=== PATIENT | male | born 1955 | race Caucasian/White ===

== ENCOUNTER 2022-02-18 08:24 | Day surgery (SDC) | payer BC ==
[~2022-02-18 08:24] MED LIST: CYCLOPENTOLATE 1% OPHTH DROPS 2 ML ONE; KETOROLAC 0.45% OPHTH DROPS ONE; PHENYLEPHRINE 2.5% OPHTH 2 ML DROPS ONE; PROPARACAINE 0.5% OPHTH DROPS 15 ML ONE
[2022-02-18] MEDS ORDERED: LACTATED RINGERS 1,000 ML IV ONE (08:41)
[2022-02-18] MEDS ORDERED: MIDAZOLAM 2 MG/2 ML VIAL ONE (10:14)
--- NOTE | 2022-02-18 10:15 | ANESTHESIA ---
Pre-Anesthesia VS, & Labs - Diagnosis R senile combined cataract - Procedure R extraction cataract w/IOL Vital Signs: Temp Pulse Resp BP Pulse Ox O2 Flow Rate 36.8 C 87 13 138/95 H 98 02/18/22 08:42 02/18/22 08:42 02/18/22 08:42 02/18/22 08:42 02/18/22 08:42 Height: 5 ft 10 in Weight (kg): 81 kg Body Mass Index: 25.6 BMI Classification: Overweight - NPO >8 hours Home Medications and Allergies Home Medications: Ambulatory Orders Atorvastatin [Lipitor] 1 tab ORAL DAILY 02/17/22 Multivitamin 1 each PO DAILY 02/17/22 Vitamin E 268 mg PO DAILY 02/17/22 hydroCHLOROthiazide [Hydrodiuril] 25 mg PO DAILY 02/17/22 Atorvastatin [Lipitor] 1 tab ORAL DAILY 02/17/22 Multivitamin 1 each PO DAILY 02/17/22 Vitamin E 268 mg PO DAILY 02/17/22 hydroCHLOROthiazide [Hydrodiuril] 25 mg PO DAILY 02/17/22 Allergies/Adverse Reactions: Allergies Allergy/AdvReac Type Severity Reaction Status Date / Time No Known Drug Allergies Allergy Verified 02/17/22 13:32 Anes History & Medical History - Medical History Cardiovascular: reports: Hypertension Pulmonary: reports: None Gastrointestinal: reports: None Urinary: reports: None Musculoskeletal: reports: None Endocrine/Autoimmune: reports: None - Surgical History Orthopedic: reports: Arthroscopic surgery, Other
[2022-02-18] MEDS ORDERED: EPINEPHrine 1 MG/ML AMP ONE (10:17)
[2022-02-18] MEDS ORDERED: TRIAMCIN/MOXIFLOX OPHTHALMIC 0.6 ML VIAL IO ONE ×2 (10:17→11:17)
[2022-02-18] MEDS ORDERED: TIMOLOL 0.5% OPHTH DROPS ONE (10:17)
[2022-02-18] MEDS ORDERED: BSS/LIDOCAINE/EPINEPHRINE 1 ML VIAL ONE (10:17)
[2022-02-18] MEDS ORDERED: VANCOMYCIN OPHTH (TOPICAL) 10 MG/ML SYRINGE ONE (10:17)
[2022-02-18] MEDS ORDERED: BRIMONIDINE 0.2% OPHTH DROPS 5 ML ONE (10:17)
--- NOTE | 2022-02-18 11:12 | ANESTHESIA ---
Pre-Anesthesia VS, & Labs - Diagnosis R cataract - Procedure R PhacoIOL Vital Signs: Temp Pulse Resp BP Pulse Ox O2 Flow Rate 36.8 C 87 13 138/95 H 98 02/18/22 08:42 02/18/22 08:42 02/18/22 08:42 02/18/22 08:42 02/18/22 08:42 Height: 5 ft 10 in Weight (kg): 81 kg Body Mass Index: 25.6 BMI Classification: Overweight - NPO >8 hours Home Medications and Allergies Home Medications: Ambulatory Orders Atorvastatin [Lipitor] 1 tab ORAL DAILY 02/17/22 Multivitamin 1 each PO DAILY 02/17/22 Vitamin E 268 mg PO DAILY 02/17/22 hydroCHLOROthiazide [Hydrodiuril] 25 mg PO DAILY 02/17/22 Atorvastatin [Lipitor] 1 tab ORAL DAILY 02/17/22 Multivitamin 1 each PO DAILY 02/17/22 Vitamin E 268 mg PO DAILY 02/17/22 hydroCHLOROthiazide [Hydrodiuril] 25 mg PO DAILY 02/17/22 Allergies/Adverse Reactions: Allergies Allergy/AdvReac Type Severity Reaction Status Date / Time No Known Drug Allergies Allergy Verified 02/17/22 13:32 Anes History & Medical History - Anesthetic History Anesthesia Complications: reports: No previous complications Family history of Anesthesia Complications: Denies Family history of Malignant Hyperthermia: Denies - Medical History Cardiovascular: reports: Hypertension Pulmonary: reports: None Gastrointestinal: reports: None Urinary: reports: None Musculoskeletal: reports: None Endocrine/Autoimmune: reports: None - Surgical History Orthopedic: reports: Arthroscopic surgery, Other Exam General: Alert, Oriented x3, Cooperative Dental: WNL Mouth Openin Fingerbreadth Neck Mobility: Normal Mallampati classification: II Thyromental Distance: 4-6 cm Cardiovascular: Regular rate Plan Anesthesia Type: MAC Consent for Procedure(s) Verified and Reviewed: Yes Code Status: Attempt Resuscitation ASA classification: 2-Mild systemic disease Is this case an emergency?: No
[2022-02-18] MEDS ORDERED: BRIMONIDINE 0.2% OPHTH DROPS 5 ML OPTH ONE (11:16)
[2022-02-18] MEDS ORDERED: EPINEPHrine 1 MG/ML AMP IR ONE (11:17)
[2022-02-18] MEDS ORDERED: BSS/LIDOCAINE/EPINEPHRINE 1 ML SYRINGE IO ONE (11:17)
[2022-02-18] MEDS ORDERED: VANCOMYCIN OPHTH (TOPICAL) 10 MG/ML SYRINGE TOP ONE (11:17)
[2022-02-18] MEDS ORDERED: PROPARACAINE 0.5% OPHTH DROPS 15 ML EACHEYE ONE (11:17)
[2022-02-18] MEDS ORDERED: TIMOLOL 0.5% OPHTH DROPS OPTH ONE (11:17)
[2022-02-18] MEDS ORDERED: LACTATED RINGERS 500 ML IV ONE (11:30)
--- NOTE | 2022-02-18 11:41 | OPERATIVE REPORT ---
Operative Report - Other Other Information/Narrative: Date of Surgery: 02/18/22 Preop Dx: Visually significant cataract right eye. This was the first cataract surgery. Postop Dx: Same Procedure: Phacoemulsification with posterior chamber intraocular lens implant right eye Surgeon: Dr. Behzad Calle Anesthesia: Monitored anesthesia care Complications: None Operative Indications: This is a 67-year-old M with progressive vision loss in the right eye due to 2+ nuclear sclerotic and vacuolar cataract. Best corrected visual acuity was 20/20 with glare to 20/300 vision in the right eye. Indications for surgery were: - Overall decrease in vision - Difficulty seeing words, closed captions, or game scores on TV - Difficulty seeing street signs - Difficulty driving in low light or at night - Difficulty driving at night because of headlights from other vehicles - Difficulty with glare or bright lights in any situation - Difficulty tracking a golf ball The patient was consented at length concerning the risks and benefits of cataract surgery after which the patient expressed a desire to proceed with surgery. Operative Procedure: The patient was taken into OR#3 and placed under monitored anesthesia care. A surgical time-out was conducted confirming correct patient, correct procedure, and correct surgical site. The patient was given topical anesthesia and then prepped and draped in the usual sterile fashion. The eye was entered at the 6 and 3 oclock positions. Intracameral Shugarcaine was injected into the anterior chamber followed by a dispersive viscoelastic. A continuous-tear curvilinear capsulorhexis was performed. The nucleus was hydrodissected and phacoemulsified. The cortex was evacuated using automated infusion and aspiration. A cohesive viscoelastic was injected into the capsular bag and a 21.5 diopter intraocular lens was inserted into the bag. Infusion and aspiration were used to evacuate the viscoelastic materials from the eye. The wounds were hydrated and the eye inflated to physiologic pressure using balanced salt solution. Approximately 0.25ml of a mixture of triamcinolone and moxaflovacin was injected trans-sclerally into the vitreous in the inferotemporal quadrant using a 30 gauge cannula. An additional 0.55ml of a mixture of triamcinolone and moxifloxacin was injected subconjunctivally in the superior quadrant for infection and inflammation prophylaxis. Wound integrity was checked with Weck-Nadine sponges. The patient was taken from the operating room in good condition and given post-op instructions.
[2022-02-18 12:02] VITALS: BP 141/93
--- NOTE | 2022-02-18 13:41 | ANESTHESIA POST OP EVALUATION ---
Anesthesia Post Eval - Post Anesthesia Eval Vitals: Last Vital Signs Temp 36.7 C 02/18/22 11:45 Pulse 78 02/18/22 11:45 Resp 16 02/18/22 11:45 BP 141/93 H 02/18/22 11:45 Pulse Ox 98 02/18/22 11:45 O2 Flow Rate CV Function Including HR & BP: Stable Pain Control: Satisfactory Nausea & Vomiting: Negative Mental Status: Baseline Respiratory Status: Airway Patent Hydration Status: Satisfactory Anesthesia Complications: None
== END 2022-02-18 08:25 | disposition home or self-care (01) ==
LOC: SDS 08:24
PROVIDERS: ATTEND Ophthalmology
DX: H25.811 Combined forms of age-related cataract, right eye (principal); I10 Essential (primary) hypertension
CPT/HCPCS: 66984; A9270; J3490; J7120

== ENCOUNTER 2022-06-03 08:54 | Day surgery (SDC) | payer MEDICARE ==
[2022-06-03] MEDS ORDERED: LACTATED RINGERS 1,000 ML IV ONE (09:06)
[2022-06-03] MEDS ORDERED: TIMOLOL 0.5% OPHTH DROPS ONE (10:28)
[2022-06-03] MEDS ORDERED: EPINEPHrine 1 MG/ML AMP ONE (10:28)
[2022-06-03] MEDS ORDERED: BRIMONIDINE 0.2% OPHTH DROPS 5 ML ONE (10:28)
[2022-06-03] MEDS ORDERED: TRIAMCIN/MOXIFLOX OPHTHALMIC 0.6 ML VIAL IO ONE ×2 (10:28→11:13)
[2022-06-03] MEDS ORDERED: VANCOMYCIN OPHTH (TOPICAL) 10 MG/ML SYRINGE ONE (10:28)
[2022-06-03] MEDS ORDERED: BSS/LIDOCAINE/EPINEPHRINE 1 ML VIAL ONE (10:28)
--- NOTE | 2022-06-03 10:50 | ANESTHESIA ---
Pre-Anesthesia VS, & Labs - Diagnosis L cataract - Procedure L phacoIOL Vital Signs: Temp Pulse Resp BP Pulse Ox O2 Flow Rate 36.3 C L 75 14 155/90 H 97 06/03/22 09:12 06/03/22 09:12 06/03/22 09:12 06/03/22 09:12 06/03/22 09:12 Height: 5 ft 10 in Weight (kg): 80 kg Body Mass Index: 25.2 BMI Classification: Overweight - NPO >8 hours Home Medications and Allergies Atorvastatin [Lipitor] 1 tab ORAL DAILY 02/17/22 Multivitamin 1 each PO DAILY 02/17/22 Vitamin E 268 mg PO DAILY 02/17/22 hydroCHLOROthiazide [Hydrodiuril] 25 mg PO DAILY 02/17/22 Allergies/Adverse Reactions: Allergies Allergy/AdvReac Type Severity Reaction Status Date / Time No Known Drug Allergies Allergy Verified 06/03/22 09:06 Anes History & Medical History - Anesthetic History Anesthesia Complications: reports: No previous complications Family history of Anesthesia Complications: Denies Family history of Malignant Hyperthermia: Denies - Medical History Cardiovascular: reports: Hypertension Pulmonary: reports: None Gastrointestinal: reports: None Urinary: reports: None Musculoskeletal: reports: None Endocrine/Autoimmune: reports: None - Surgical History Orthopedic: reports: Arthroscopic surgery, Other Exam General: Alert, Oriented x3, Cooperative Dental: WNL Mouth Openin Fingerbreadth Neck Mobility: Normal Mallampati classification: I Thyromental Distance: 4-6 cm Respiratory: Lungs clear Cardiovascular: Regular rate Plan Anesthesia Type: MAC Consent for Procedure(s) Verified and Reviewed: Yes Code Status: Attempt Resuscitation ASA classification: 2-Mild systemic disease Is this case an emergency?: No
[2022-06-03] MEDS ORDERED: MIDAZOLAM 2 MG/2 ML VIAL ONE (11:00)
[2022-06-03] MEDS ORDERED: BRIMONIDINE 0.2% OPHTH DROPS 5 ML OPTH ONE (11:13)
[2022-06-03] MEDS ORDERED: TIMOLOL 0.5% OPHTH DROPS OPTH ONE (11:13)
[2022-06-03] MEDS ORDERED: EPINEPHrine 1 MG/ML AMP IR ONE (11:13)
[2022-06-03] MEDS ORDERED: BSS/LIDOCAINE/EPINEPHRINE 1 ML SYRINGE IO ONE (11:13)
[2022-06-03] MEDS ORDERED: VANCOMYCIN OPHTH (TOPICAL) 10 MG/ML SYRINGE TOP ONE (11:14)
[2022-06-03] MEDS ORDERED: PROPARACAINE 0.5% OPHTH DROPS 15 ML LEFTEYE ONE (11:14)
[2022-06-03] MEDS ORDERED: LACTATED RINGERS IV ONE (11:25)
[2022-06-03 11:36] VITALS: BP 137/78
--- NOTE | 2022-06-03 11:36 | OPERATIVE REPORT ---
Operative Report - Other Other Information/Narrative: Date of Surgery: 06/03/22 Preop Dx: Visually significant cataract left eye. Cataract surgery was performed in the right eye on . Postop Dx: Same Procedure: Phacoemulsification with posterior chamber intraocular lens implant left eye Surgeon: Dr. Behzad Calle Anesthesia: Monitored anesthesia care Complications: None Operative Indications: This is a 67-year-old M with progressive vision loss in the left eye due to 2+ nuclear sclerotic and vacuolar cataract. Best corrected visual acuity was 20/20 with glare to 20/150 vision in the left eye. Indications for surgery were: - Overall decrease in vision - Difficulty seeing words on a computer screen - Difficulty reading - Difficulty driving in low light or at night - Difficulty driving at night because of headlights from other vehicles - Difficulty with glare or bright lights in any situation - Difficulty tracking a golf ball The patient was consented at length concerning the risks and benefits of cataract surgery after which the patient expressed a desire to proceed with surgery. Operative Procedure: The patient was taken into OR#3 and placed under monitored anesthesia care. A surgical time-out was conducted confirming correct patient, correct procedure, and correct surgical site. The patient was given topical anesthesia and then prepped and draped in the usual sterile fashion. The eye was entered at the 6 and 3 oclock positions. Intracameral Shugarcaine was injected into the anterior chamber followed by a dispersive viscoelastic. A continuous-tear curvilinear capsulorhexis was performed. The nucleus was hydrodissected and phacoemulsified. The cortex was evacuated using automated infusion and aspiration. A cohesive viscoelastic was injected into the capsular bag and a 21.0 diopter intraocular lens was inserted into the bag. Infusion and aspiration were used to evacuate the viscoelastic materials from the eye. The wounds were hydrated and the eye inflated to physiologic pressure using balanced salt solution. Approximately 0.25ml of a mixture of triamcinolone and moxifloxacin was injected trans-sclerally into the vitreous in the inferotemporal quadrant using a 30 gauge cannula. An additional 0.25ml of a mixture of triamcinolone and moxifloxacin was injected subconjunctivally in the superior quadrant for infection and inflammation prophylaxis. Wound integrity was checked with Weck-Nadine sponges. The patient was taken from the operating room in good condition and given post-op instructions.
--- NOTE | 2022-06-03 16:45 | ANESTHESIA POST OP EVALUATION ---
Anesthesia Post Eval - Post Anesthesia Eval Vitals: Last Vital Signs Temp 36.6 C 06/03/22 11:25 Pulse 72 06/03/22 11:35 Resp 16 06/03/22 11:35 BP 137/78 H 06/03/22 11:35 Pulse Ox 98 06/03/22 11:35 O2 Flow Rate CV Function Including HR & BP: Stable Pain Control: Satisfactory Nausea & Vomiting: Negative Mental Status: Baseline Respiratory Status: Airway Patent Hydration Status: Satisfactory Anesthesia Complications: None
== END 2022-06-03 08:55 | disposition home or self-care (01) ==
LOC: SDS 08:54
PROVIDERS: ATTEND Ophthalmology
DX: H25.812 Combined forms of age-related cataract, left eye (principal); Z98.41 Cataract extraction status, right eye
CPT/HCPCS: 66984; A9270; J7120

== ENCOUNTER 2023-07-05 13:14 | Outpatient (CLI) | payer MEDICARE ==
--- NOTE | 2023-07-05 16:27 | MRI Report ---
Knee LT WO CLINICAL INFORMATION: 68 years of age, Male, LEFT KNEE PAIN. COMPARISON: None Technique: Multisequence, multiplanar MRI of the left knee was performed without intravenous contrast . FINDINGS: Menisci: In the medial meniscus, there is near maceration of the posterior horn, and the meniscus bod y. There is mild extrusion of the residual meniscus body. The lateral meniscus is unremarkable. Cruciate ligaments: The ACL is indistinct with mild increased T2 hyperintensity, which may represent mucoid degeneration versus partial tear. There is mild intermediate signal of the PCL, representing m ild prior sprain. 1.4 cm ganglion cyst posterior to the PCL. MCL/LCL: The MCL is unremarkable. Low grade interstitial tear of the distal biceps femoris tendon. A cluster of small cyst superficial to the distal biceps femoris tendon, measuring 1.8 cm, likely repr esenting a ganglion cyst.. The fibular collateral ligament is unremarkable. The iliotibial band is in tact. The popliteus muscle and tendon also appear intact. Extensor mechanism: The quadricep tendon is unremarkable. The patella tendon is unremarkable. Patellofemoral joint: Alignment within the patellofemoral joint is normal. The patellofemoral ligame nts are intact. Multifocal low grade chondral fissuring in the patella. Mild chondral irregularity in the medial and lateral trochlea. Cartilage and bone: In the medial compartment, there is large areas of full-thickness chondral denuda tion in the weightbearing portion of the medial femoral condyle in the tibial plateau. There is assoc iated mild subchondral marrow edema of the weightbearing portion of the medial femoral condyle pain i n the medial tibial plateau. There is additional multifocal high-grade chondral irregularity in the n onweightbearing portion of the femoral condyle. In the lateral compartment, there is mild chondral th inning in the nonweightbearing portion of the femoral condyle, with associated mild subchondral marro w edema. No acute fracture. Miscellaneous: Moderate knee effusion. No popliteal cyst. No intra-articular bodies are identified. N ormal muscle signal intensity and morphology. No vascular anomaly. 2.6 cm ganglion cyst about the ins ertion of the medial head of the gastrocnemius. IMPRESSION: 1.Near maceration of the posterior horn and body of the medial meniscus. 2.Mucoid degeneration versus partial tear of the ACL. 3.Prior sprain of the PCL. 4.Low-grade interstitial tear of the distal biceps femoris tendon with adjacent cluster of ganglion c ysts. 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 6.Moderate knee effusion. Ganglion cyst about the insertion medial head of the gastrocnemius and post erior to the PCL. Reviewed by: Trinidad Canada MD on 07/05/2023 4:26 PM PDT Approved by: Trinidad Canada MD on 07/05/2023 4:26 PM PDT Station ID: [id number]
== END 2023-07-05 13:15 | disposition home or self-care (01) ==
LOC: DI 13:14
PROVIDERS: ATTEND Orthopaedic Surgery Foot and Ankle Surgery
DX: M23.304 Other meniscus derangements, unspecified medial meniscus, left knee (principal); S46.212A Strain of muscle, fascia and tendon of other parts of biceps, left arm, initial encounter; M25.862 Other specified joint disorders, left knee; M25.462 Effusion, left knee; M67.462 Ganglion, left knee

== ENCOUNTER 2023-12-14 09:40 | Outpatient (CLI) | payer MEDICARE ==
[2023-12-14 09:54] LABS: BASOPHILS % (AUTO) 0.6 %; EOSINOPHILS # (AUTO) 0.1 10^3/uL (0.0-0.7); EOSINOPHILS % (AUTO) 1.3 %; HCT - HEMATOCRIT 46.9 % (42.0-52.0); HGB - HEMOGLOBIN 15.9 g/dL (14.0-18.0); LYMPHOCYTES % (AUTO) 37.1 %; MEAN CORPUSCULAR HEMOGLOBIN 30.1 pg (27.0-31.0); MEAN CORPUSCULAR HGB CONC 33.9 g/dL (32.0-36.0); MEAN CORPUSCULAR VOLUME 88.8 fL (80.0-94.0); MONOCYTES # (AUTO) 0.3 10^3/uL (0.0-1.0); MONOCYTES % (AUTO) 6.1 %; NEUTROPHILS % (AUTO) 54.7 %; PLT - PLATELET COUNT 207 10^3/uL (130-450); RED BLOOD COUNT 5.28 10^6/uL (4.70-6.10); RED CELL DISTRIBUTION WIDTH 12.5 % (12.0-15.0); WHITE BLOOD COUNT 5.4 x10^3/uL (4.8-10.8)
[2023-12-14 10:17] LABS: CALCIUM 9.5 mg/dL (8.5-10.3); CREATININE 0.9 mg/dL (0.6-1.3); POTASSIUM 3.8 mmol/L (3.5-4.5)
[2023-12-14 10:47] LABS: ESTIMATED AVERAGE GLUCOSE 100 mg/dL (70-100); HEMOGLOBIN A1c% 5.1 % (4.27-6.07)
== END 2023-12-14 09:41 | disposition home or self-care (01) ==
LOC: LAB 09:40
PROVIDERS: ATTEND Orthopaedic Surgery Foot and Ankle Surgery
DX: Z01.818 Encounter for other preprocedural examination (principal); R73.9 Hyperglycemia, unspecified
CPT/HCPCS: 36415; 80048; 83036; 85025; 93005